=== PATIENT | male | born 1965 | race Two or more races ===

== ENCOUNTER 2017-10-22 08:56 | Emergency (ER) | payer SELFPAY ==
[2017-10-22] MEDS: TETRACAINE 0.5% OPHTH SOLUTION 4ML BOTTLE. OS (09:37)
[2017-10-22] MEDS: FLUORESCEIN OPHTH TEST STRIP. OS (09:37)
== END 2017-10-22 10:12 | disposition home or self-care (01) ==
LOC: ER 08:56
DX: S05.02XA Injury of conjunctiva and corneal abrasion without foreign body, left eye, initial encounter (principal); F10.20 Alcohol dependence, uncomplicated; W22.8XXA Striking against or struck by other objects, initial encounter; Y93.89 Activity, other specified; Y92.89 Other specified places as the place of occurrence of the external cause; Y99.8 Other external cause status
CPT/HCPCS: 99283